=== PATIENT | male | born 1980 | race Caucasian/White ===

== ENCOUNTER 2023-03-03 07:42 | Day surgery (SDC) | payer OTHER ==
[2023-02-28 11:22] VITALS: BMI 31.1
[~2023-03-03 07:42] MED LIST: LACTATED RINGERS SOLUTION 1,000 ML IV SCH; ONDANSETRON 4 MG/2 ML VIAL IVPUSH PRN; oxyCODONE HCL 5 MG TABLET PO PRN
[2023-03-03] MEDS ORDERED: PROPOFOL 40 ML ONE (08:08)
[2023-03-03] MEDS ORDERED: LIDOCAINE HCL/PF 2% SDV 5ML VIAL ONE (08:08)
[2023-03-03] MEDS ORDERED: ONDANSETRON 4 MG/2 ML VIAL ONE (08:10)
[2023-03-03] MEDS ORDERED: DEXAMETHASONE SOD PHOSPHATE 4 MG/1 ML VIAL ONE (08:12)
[2023-03-03] MEDS ORDERED: KETOROLAC TROMETHAMINE 30 MG/1 ML VIAL ONE (08:13)
[2023-03-03] MEDS ORDERED: ceFAZolin SODIUM 1 GM VIAL ONE ×2 (08:14)
[2023-03-03] MEDS ORDERED: MIDAZOLAM HCL 2 MG/2 ML SINGLE DOSE VIAL ONE (08:14)
[2023-03-03] MEDS ORDERED: SEVOFLURANE 250 ML BTL ONE (08:18)
[2023-03-03] MEDS ORDERED: BUPIVACAINE HCL/PF 2.5 MG/ML - 30 ML VIAL IJ ONE (09:25)
[2023-03-03] MEDS ORDERED: ACETAMINOPHEN INJECTION 100 ML IVPB ONE (10:03)
[2023-03-03 12:17] VITALS: RESP 16; TEMP 97.6
[2023-03-03 12:20] VITALS: BP 135/74; PULSE 92
== END 2023-03-03 12:10 | disposition home or self-care (01) ==
LOC: FASU 07:42
PROVIDERS: ATTEND Orthopaedic Surgery
PROC: 0SBG4ZZ Excision of Left Ankle Joint, Percutaneous Endoscopic Approach (ICD-10-PCS; principal; 2023-03-03 10:38)
DX: M65.872 Other synovitis and tenosynovitis, left ankle and foot (principal); M77.32 Calcaneal spur, left foot